=== PATIENT | female | born 1960 | race Caucasian/White ===

== ENCOUNTER → 2016-10-16 | Outpatient (CLI) | payer OTHER ==
--- NOTE | 2016-10-17 16:00 | MAMMOGRAPHY REPORT ---
BILATERAL DIGITAL SCREENING MAMMOGRAM TOMOSYNTHESIS WITH CAD: 10/16/2016 CLINICAL HISTORY: Routine screening. Patient has no complaints. TECHNIQUE: Breast tomosynthesis in addition to standard 2D mammography was performed. Current study was also evaluated with a Computer Aided Detection (CAD) system. COMPARISON: Comparison is made to exams dated: 09/16/2015 mammogram, 09/16/2015 ultrasound, 09/06/2014 ultrasound, 09/06/2014 mammogram, 08/18/2013 mammogram, and 08/18/2013 ultrasound - [facility]. BREAST COMPOSITION: The tissue of both breasts is extremely dense, which lowers the sensitivity of m ammography. FINDINGS: There are multiple bilateral circumscribed subcentimeter masses scattered in the breasts, w hich slightly differing size comparing to prior mammograms. The dominant circumscribed mass in the 6 :00/retroareolar left breast measures 15 mm. These most likely represent fluctuating cysts. No susp icious spiculated or irregular mass, architectural distortion or cluster of new, suspicious microcalc ifications is seen. IMPRESSION: ACR BI-RADS CATEGORY 1: NEGATIVE There is no mammographic evidence of malignancy. A 1 year screening mammogram is recommended. A bilateral complete breast screening ultrasound was performed on the same day and the screening mamm ogram results were discussed with the patient at that time. A letter will also be mailed to the heath ent. Approximately 10% of breast cancers are not detected with mammography. A negative mammographic report should not delay biopsy if a clinically suggestive mass is present. Amira Heath M.D. ay/:10/16/2016 15:19:42 Copy Clerk: Rose PORTILLO([place])(Cynthia), [facility] letter sent: Normal 1/2 BI-RADS Code: ACR BI-RADS Category 1: Negative
--- NOTE | 2016-10-17 16:00 | MAMMOGRAPHY REPORT ---
ULTRASOUND OF BOTH BREASTS: 10/16/2016 CLINICAL HISTORY: Additional screening for dense breasts. COMPARISON: Comparison is made to exams dated: 10/16/2016 mammogram, 09/16/2015 mammogram, 09/16/2015 u ltrasound, 09/06/2014 ultrasound, 09/06/2014 mammogram, and 08/18/2013 mammogram - [facility]. FINDINGS: Real-time high-resolution sonographic evaluation was performed in both breasts and both ax illae. The breast parenchymal echotexture is heterogeneousdense. Within the left breast, numerous anechoic and hypoechoic cysts are identified, similar in number and configuration compared to the prior ultrasounds. In the 12:00 periareolar left breast, there is an a nechoic benign simple cyst measuring 2.8 mm. In the retroareolar left breast, a circumscribed oval a nechoic cyst with posterior acoustic enhancement measures 13.8 x 11.0 x 15.5 mm. This likely correla andrae with the dominant circumscribed mammographic mass. Other subcentimeter anechoic cysts are identi fied in the left 2:00 breast, 2 cm from the nipple, the 3:00 left breast, 2 cm from the nipple, the 5 :00 left breast, 2 cm from the nipple, the 4:00 periareolar left breast, the 6:00 left breast, 4 cm f rom the nipple the 6:30 left breast, 4 cm from the nipple, the 7:00 left breast, 2 cm from the nipple and the 8:00 left breast, 2 cm from the nipple. Numerous scattered anechoic round and oval cysts are also seen within the right breast. In the 11:00 to 12:00 right breast, there is a round anechoic simple cyst measuring 5.9 mm. Several tiny subcent imeter cysts are scattered throughout the 11:00 and 12:00 axes, 2-4 cm from the nipple. Another oval parallel circumscribed 3.9 mm cyst is identified in the 2:00 right breast, 2 cm from the nipple. A round hypoechoic cystic-appearing mass is seen in the 7:00 right breast, 2 cm from the nipple, measur ing 4.3 mm. Another tiny anechoic cyst measuring 2 mm is seen in the 9:00 right breast, 5 cm from th e nipple. In anechoic simple cyst in the 10:00 right breast, 1 cm from the nipple, measures 6 mm. No suspicious axillary lymphadenopathy is identified bilaterally. IMPRESSION: ACR BI-RADS CATEGORY 2: BENIGN There is no sonographic evidence of malignancy in the breasts. No suspicious axillary lymphadenopath y laterally. Numerous round and oval circumscribed cysts are identified throughout both breasts, com patible with benign fibrocystic changes. Recommend routine screening mammography as well as screening breast ultrasound in one year. Amira Heath M.D. ay/:10/16/2016 15:27:16 Heavy Equipment R[employer] Manager: Rose PORTILLO([place])(Cynthia), [facility] letter sent: Normal 1/2 BI-RADS Code: ACR BI-RADS Category 2: Benign
== END | disposition home or self-care (01) ==
LOC: C.MAMM 13:02
PROVIDERS: ATTEND Obstetrics & Gynecology
DX: Z12.31 Encounter for screening mammogram for malignant neoplasm of breast (principal)